=== PATIENT | female | born 1945 | race Caucasian/White ===

== ENCOUNTER 2017-02-07 08:27 | Emergency (ER) | payer MEDICAID ==
[~2017-02-07] VITALS: Ht 162.6 cm; Wt 67.0 kg
[2017-02-07 08:30] VITALS: Ht 162.6 cm; Wt 67.0 kg
[2017-02-07] MEDS ORDERED: KETOROLAC 30 MG INJ IM STA (08:52)
--- NOTE | 2017-02-07 08:56 | ERD ---
ER Documentation Chief Complaint Date/Time DATE: 02/07/17 TIME: 08:54 Chief Complaint RT LEG PAIN X 2 DAYS HPI This a 69-year-old female who presents to the emergency department today with her daughter complaining of right leg pain for the past 3 days. States the pain is worse in her hip and groin. Patient states that she had something similar approximately 8 months ago that improved but is now worse again. Denies any fevers or chills. Denies falling. Denies any chest pain or shortness of breath. Denies any trauma. States that she has pain with walking. ROS All systems reviewed and are negative except as per history of present illness. Medications Home Meds Active Scripts Acetaminophen* (Tylophen*) 500 Mg Capsule, 1 CAP PO Q6H Y for PAIN AND OR ELEVATED TEMP, #30 CAP Prov:YAZMIN KUHN PA-C 02/07/17 Tramadol HCl (Tramadol HCl) 50 Mg Tablet, 50 MG PO Q4 Y for PAIN, #20 TAB Prov:YAZMIN KUHN PA-C 02/07/17 PMhx/Soc History of Surgery: No Anesthesia Reaction: No Hx Neurological Disorder: No Hx Respiratory Disorders: No Hx Cardiac Disorders: Yes (HTN-not taking meds) Hx Psychiatric Problems: No Hx Miscellaneous Medical Probl: No Hx Alcohol Use: No Hx Substance Use: No Hx Tobacco Use: No Smoking Status: Never smoker Physical Exam Vitals Vital Signs Date Time Temp Pulse Resp B/P Pulse Ox O2 Delivery O2 Flow Rate FiO2 02/07/17 08:30 98.1 81 16 170/78 99 Physical Exam Const: Sitting in wheelchair, no acute distress Head: Atraumatic Eyes: Normal Conjunctiva ENT: Normal External Ears, Nose and Mouth. Neck: Full range of motion..~ No meningismus. Resp: Clear to auscultation bilaterally Cardio: Regular rate and rhythm, no murmurs Skin: No petechiae or rashes Back: No midline or flank tenderness Ext: No cyanosis, or edema. No calf tenderness. No erythema or warmth. MSK: Right hip and femur with no obvious deformity. No effusion. No ecchymosis. Pain with hip flexion. Unable to assess full range of motion as patient was sitting in wheelchair. Pulses 2+. Distal neurovascularly intact. Neur: Awake and alert Psych: Normal Mood and Affect Results 24 hrs Current Medications Medications (Trade) Dose Ordered Sig/Edwin Route PRN Reason Start Time Stop Time Status Last Admin Dose Admin Ketorolac Tromethamine (Toradol) 30 mg ONCE STAT IM 02/07/17 08:52 02/07/17 08:53 DC 02/07/17 09:10 DIAGNOSTIC IMAGING REPORT Patient: JOON GODFREY : 1945 Age: 71 Sex: F MR #: [id number] DOS: 02/07/17 0000 Ordering MD: YAZMIN KUHN PA-C Location: [facility] Room/Bed: PROCEDURE: XR Hip. CLINICAL INDICATION: right leg pain TECHNIQUE: AP and frog lateral views of the right hip were performed. COMPARISON: None. FINDINGS: There is normal mineralization and alignment. No fracture or osseous lesion is identified. There are normal joints without evidence of arthritis or effusion. The soft tissues are unremarkable. IMPRESSION: Unremarkable right hip. .Doyle Gage MD, Date Time Electronically viewed and signed by .Doyle Gage MD, on 02/07/2017 10: 44 .A/ CC: YAZMIN KUHN PA-C DIAGNOSTIC IMAGING REPORT Patient: JOON GODFREY : 1945 Age: 71 Sex: F MR #: [id number] DOS: 02/07/17 0000 Ordering MD: YAZMIN KUHN PA-C Location: [facility] Room/Bed: PROCEDURE: Pelvis x-ray CLINICAL INDICATION: right leg pain TECHNIQUE: Single AP view of the pelvis performed. COMPARISON: None FINDINGS: Normal mineralization, architecture and alignment. No fracture or osseous lesion identified. There are no significant degenerative changes. Unremarkable soft tissues. IMPRESSION: No acute fracture or subluxation. .Doyle Gage MD, Date Time Electronically viewed and signed by .Doyle Gage MD, on 02/07/2017 10: 44 .A/ CC: YAZMIN KUHN PA-C Procedures/MDM This is a 71-year-old female who presents to the emergency department today complaining of right leg pain. Patient indicates the pain is worse in her hip and groin. Patient was complaining of pain with ambulating She did not report any trauma however given the location of pain and patient's age I did obtain images of the hip and pelvis. Per the radiology report images of the right hip and pelvis are unremarkable. There is normal mineralization and alignment. There is no fracture. There are normal joints without evidence of arthritis or effusion. Soft tissues are unremarkable. There are no significant degenerative changes. Patient symptoms at this time consistent with right leg pain of uncertain etiology. Patient is afebrile and otherwise well-appearing. She is not tachycardic. Her oxygen saturations 99%. There is no erythema, warmth or swelling in her lower extremity, she has no calf pain and I have low suspicion for DVT or PE. Patient was given Toradol here in the emergency department and patient reported pain dramatically improved. Patient will be given a prescription for tramadol and Tylenol. Patient does not have a primary care physician although she is 71 years old. I have explained to her that she needs to get a primary care physician I will give her a list of resources. At this time the patient is stable for discharge and outpatient management. Patient should follow up with their PCP in the next 1-2 days. They may return to the emergency department sooner for any persistent or worsening of symptoms. Patient and daughter understood and agreed with the plan. Departure Diagnosis: Primary Impression: Pain of right leg Condition: Fair YAZMIN KUHN PA-C Feb 07, 2017 08:56
--- NOTE | 2017-02-07 10:44 | RADRPT ---
PROCEDURE: Pelvis x-ray CLINICAL INDICATION: right leg pain TECHNIQUE: Single AP view of the pelvis performed. COMPARISON: None FINDINGS: Normal mineralization, architecture and alignment. No fracture or osseous lesion identified. There are no significant degenerative changes. Unremarkable soft tissues. IMPRESSION: No acute fracture or subluxation. .Doyle Gage MD, MD Date Time Electronically viewed and signed by .Doyle Gage MD, on 02/07/2017 10:44 .A/
--- NOTE | 2017-02-07 10:44 | RADRPT ---
PROCEDURE: XR Hip. CLINICAL INDICATION: right leg pain TECHNIQUE: AP and frog lateral views of the right hip were performed. COMPARISON: None. FINDINGS: There is normal mineralization and alignment. No fracture or osseous lesion is identified. There are normal joints without evidence of arthritis or effusion. The soft tissues are unremarkable. IMPRESSION: Unremarkable right hip. .Doyle Gage MD, MD Date Time Electronically viewed and signed by .Doyle Gage MD, MD on 02/07/2017 10:44 .A/
[2017-02-07] MEDS ORDERED: TRAM50TA2 PO (10:55)
[2017-02-07] MEDS ORDERED: ACET500C5 PO (10:55)
== END 2017-02-07 11:01 | disposition home or self-care (01) ==
LOC: FTE 08:27
DX: M79.604 Pain in right leg (principal); I10 Essential (primary) hypertension
CPT/HCPCS: 72170; 73510; 96372; J1885; Z7502

== ENCOUNTER 2018-03-25 09:12 | Emergency (ER) | END 2018-03-25 11:50 | disposition home or self-care (01) ==